=== PATIENT | female | born 1995 | race Caucasian/White ===

== ENCOUNTER 2021-07-24 05:06 | Inpatient (IN) | payer OTHER ==
[~2021-07-24] VITALS: Ht 142.2 cm; Wt 69.4 kg
[~2021-07-24 05:06] MED LIST: COLACE 100MG C100 MG PO; FAMOTIDINE20 MG PO; IBUPROFEN600 MG PO; LORTAB 5-325 M1 EACH PO; MACROBID 100 M100 MG PO; PRENATAL VITAM1 EAC6 PO
[2021-07-24 07:29] LABS: BUN/CREATININE RATIO 10 (0-10)
[2021-07-24] MEDS ORDERED: DOCUSATE SODIU100 MG PO (13:16)
[2021-07-24] MEDS ORDERED: IBUPROFEN600 MG PO (13:16)
[2021-07-24] MEDS ORDERED: HYDROCODON-ACE1 EAC4 PO (13:16)
[2021-07-25 05:04] LABS: HEMOGLOBIN 10.3 gm/dl (12.3-15.3)
== END 2021-07-26 13:22 | disposition home or self-care (01) | DRG 788 ==
LOC: OB 05:06
PROVIDERS: Obstetrics & Gynecology; ADMIT Obstetrics & Gynecology
PROC: 10D00Z1 Extraction of Products of Conception, Low, Open Approach (ICD-10-PCS; principal; 2021-07-24 09:00)
DX: O36.5930 Maternal care for other known or suspected poor fetal growth, third trimester, not applicable or unspecified (principal); Z20.822 Contact with and (suspected) exposure to COVID-19; O34.211 Maternal care for low transverse scar from previous cesarean delivery; Z3A.37 37 weeks gestation of pregnancy; Z37.0 Single live birth
CPT/HCPCS: 36415; 80053; 81001; 82962; 85014; 85018; 85025; 90715; C9113; J0690; J1885; J2274; J2590; J3010; J7030; J7120; U0002